=== PATIENT | female | born 1990 | race Caucasian/White ===

== ENCOUNTER 2017-12-04 05:28 | Inpatient (IN) | payer OTHER ==
[~2017-12-04] VITALS: Ht 149.9 cm; Wt 86.2 kg
[2017-12-04] VITALS (8 sets, daily range): BP systolic 111–125; BP diastolic 56–68
[2017-12-04] MEDS ORDERED: PRENATAL TABLE1 EAC3 PO (06:15)
[2017-12-04] MEDS ORDERED: ENDOCET 5-3251 EACH PO (10:03)
[2017-12-04] MEDS ORDERED: IBUPROFEN800 MG PO (10:03)
[2017-12-05 02:28] VITALS: BP 102/52
[2017-12-05 07:15] VITALS: BP 106/63
[2017-12-05 07:18] LABS: BASOPHIL (%) 0.3 % (0-1); BASOPHIL COUNT 0.1 K/uL (0-0.1); EOSINOPHIL (%) 0.2 % (0-5); HEMATOCRIT 38.2 % (36.0-46.0); IMMATURE GRANULOCYTE (%) 0.5 % (0.0-0.7); LYMPHOCYTE (%) 22.1 % (15-42); LYMPHOCYTE COUNT 4.1 K/uL (1.0-2.8); MCH 25.8 PG (29.0-34.0); MCHC 31.4 G/DL (30.0-36.0); MONOCYTE (%) 7.2 % (3-12); MONOCYTE COUNT 1.4 K/uL (0-0.8); NEUTROPHIL (%) 69.7 % (45-76); NEUTROPHIL COUNT 13.1 K/uL (1.8-6.4); PLATELET COUNT 285 K/uL (156-360); RBC DIS.WIDTH-SD 40.8 % (39-53); RED BLOOD COUNT 4.66 M/uL (3.80-5.20); WHITE BLOOD COUNT 18.7 K/uL (4.1-10.2)
[2017-12-05 11:54] VITALS: BP 117/57
[2017-12-05 14:56] VITALS: BP 109/53
[2017-12-06 07:42] VITALS: BP 118/56
[2017-12-06 11:37] LABS: BASOPHIL (%) 0.3 % (0-1); BASOPHIL COUNT 0.1 K/uL (0-0.1); EOSINOPHIL (%) 0.8 % (0-5); EOSINOPHIL COUNT 0.1 K/uL (0-0.3); HEMATOCRIT 32.4 % (36.0-46.0); HEMOGLOBIN 10.2 G/DL (11.9-15.5); IMMATURE GRANULOCYTE (%) 0.5 % (0.0-0.7); LYMPHOCYTE COUNT 3.5 K/uL (1.0-2.8); MCH 25.8 PG (29.0-34.0); MCHC 31.5 G/DL (30.0-36.0); MCV 81.8 FL (83-99); MONOCYTE (%) 6.7 % (3-12); NEUTROPHIL (%) 68.7 % (45-76); NEUTROPHIL COUNT 10.5 K/uL (1.8-6.4); PLATELET COUNT 295 K/uL (156-360); RBC DIS.WIDTH-CV 14.4 % (11.8-14.6); RBC DIS.WIDTH-SD 42.5 % (39-53); RED BLOOD COUNT 3.96 M/uL (3.80-5.20); WHITE BLOOD COUNT 15.3 K/uL (4.1-10.2)
== END 2017-12-06 14:49 | disposition home or self-care (01) | DRG 765 ==
LOC: 2WEST 05:28 → 2SOUTH 14:01 → 2WEST 12-06 14:49
PROVIDERS: Obstetrics & Gynecology; Obstetrics & Gynecology Gynecology
PROC: 10D00Z1 Extraction of Products of Conception, Low, Open Approach (ICD-10-PCS; principal; 2017-12-04)
DX: O34.211 Maternal care for low transverse scar from previous cesarean delivery (principal); O99.214 Obesity complicating childbirth; O64.0XX0 Obstructed labor due to incomplete rotation of fetal head, not applicable or unspecified; E66.09 Other obesity due to excess calories; O69.81X0 Labor and delivery complicated by cord around neck, without compression, not applicable or unspecified; N85.8 Other specified noninflammatory disorders of uterus; O98.32 Other infections with a predominantly sexual mode of transmission complicating childbirth; L21.0 Seborrhea capitis; Z68.32 Body mass index [BMI] 32.0-32.9, adult; Z3A.39 39 weeks gestation of pregnancy; Z37.0 Single live birth; Z80.41 Family history of malignant neoplasm of ovary; Z82.49 Family history of ischemic heart disease and other diseases of the circulatory system; Z83.3 Family history of diabetes mellitus; Z87.440 Personal history of urinary (tract) infections
CPT/HCPCS: 36415; 85025; 86850; 86900; 86901; J0690; J2274; J2405; J2765; J7120